=== PATIENT | male | born 1960 | race African-American/Black ===

== ENCOUNTER → 2019-09-20 | Emergency (ER) | payer SELFPAY ==
[~2019-09-20] VITALS: Ht 175.3 cm; Wt 70.8 kg
[~2019-09-20] MED LIST: LIDOCAINE 1%-EPI 1:100,000 20 ML VIAL ONE; LIDOCAINE 1%-EPI 1:100,000 50 ML VIAL IJ ONE; oxyCODONE/APAP (5/325 MG) 1 UDTAB TABLET ONE; oxyCODONE/APAP (5/325 MG) 1 UDTAB TABLET PO ONE
[2019-09-20 16:34] VITALS: BP 145/81
--- NOTE | 2019-09-20 17:17 | NUR ---
PT REC'D TO ER C/O SOLLEN TESTICLES. FOR 2 DAYS ULTRASOUND CALLED
--- NOTE | 2019-09-20 18:51 | NUR ---
DR LEAL AT BEDSIDE FOR I&D
== END | disposition home or self-care (01) ==
LOC: ER 16:32
DX: L02.214 Cutaneous abscess of groin (principal); Z88.6 Allergy status to analgesic agent
CPT/HCPCS: 10060; 76870; 99284; J3490 ×2